=== PATIENT | male | born 2005 | race Caucasian/White ===

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

== ENCOUNTER 2023-05-06 14:40 | Emergency (ER) | payer OTHER ==
[~2023-05-06] VITALS: Ht 188 cm; Wt 72.6 kg
[2023-05-06 14:58] VITALS: BP 163/84
[2023-05-06] MEDS ORDERED: AMOCLA875 PO (15:25)
== END 2023-05-06 15:32 | disposition home or self-care (01) ==
LOC: ER 14:40
DX: R22.0 Localized swelling, mass and lump, head (principal); K08.89 Other specified disorders of teeth and supporting structures
CPT/HCPCS: 99282; A9270

== ENCOUNTER 2023-06-26 12:46 | Emergency (ER) | payer OTHER ==
[~2023-06-26] VITALS: Ht 188 cm; Wt 61.2 kg
[~2023-06-26 12:46] MED LIST changes: +AMOCLA875 PO
[2023-06-26 13:01] VITALS: BP 167/89
[2023-06-26 13:55] LABS: Influenza A, PCR NEGATIVE (NEGATIVE); Influenza B, PCR NEGATIVE (NEGATIVE); Resp Syncytial Virus, PCR NEGATIVE (NEGATIVE); SARS-Cov-2 (COVID-19) PCR, MMC NEGATIVE (NEGATIVE)
[2023-06-26] MEDS ORDERED: ONDA4ODT MM ×2 (15:15→15:24)
[2023-06-26] MEDS ORDERED: PROM25 PO (15:24)
== END 2023-06-26 15:36 | disposition home or self-care (01) ==
LOC: ER 12:46
PROVIDERS: Physician Assistant
DX: A08.4 Viral intestinal infection, unspecified (principal); K58.9 Irritable bowel syndrome, unspecified; J45.909 Unspecified asthma, uncomplicated
CPT/HCPCS: 0241U; 99284; A9270

== ENCOUNTER 2023-07-04 08:48 | Emergency (ER) | payer OTHER ==
[~2023-07-04] VITALS: Ht 188 cm; Wt 63.5 kg
[~2023-07-04 08:48] MED LIST changes: +PROM25 PO
[2023-07-04 09:37] VITALS: BP 144/96
[2023-07-04] MEDS ORDERED: AMOCLA875 PO (09:40)
== END 2023-07-04 09:40 | disposition home or self-care (01) ==
LOC: ER 08:48
DX: K04.7 Periapical abscess without sinus (principal); J45.909 Unspecified asthma, uncomplicated; K31.84 Gastroparesis; Z79.899 Other long term (current) drug therapy
CPT/HCPCS: 99282

== ENCOUNTER 2025-02-09 17:04 | Emergency (ER) | payer OTHER ==
[~2025-02-09] VITALS: Ht 185.4 cm; Wt 72.6 kg
[2025-02-09 17:44] VITALS: BP 159/92
[2025-02-09] MEDS ORDERED: AMOCLA875 PO (17:46)
== END 2025-02-09 17:50 | disposition home or self-care (01) ==
LOC: ER 17:04
DX: K05.10 Chronic gingivitis, plaque induced (principal); K03.81 Cracked tooth; J45.909 Unspecified asthma, uncomplicated
CPT/HCPCS: 99282